=== PATIENT | female | born 1960 | race African-American/Black ===

== ENCOUNTER 2017-09-23 19:35 | Emergency (ER) | payer MEDICAID ==
[~2017-09-23] VITALS: Ht 162.6 cm; Wt 115.7 kg
[~2017-09-23 19:35] MED LIST: BENADRYL25 M3 PO; DICYCLOMINE HCL10 MG PO; LASIX20 M1 ORAL; LISINOPRIL10 MG ORAL; OMEPRAZOLE40 M1 ORAL; POTASSIUM99 M3 PO; PRAVASTATIN SOD20 M1 ORAL
[2017-09-23] MEDS ORDERED: IBUPROFEN600 MG ORAL (20:11)
[2017-09-23] MEDS ORDERED: ROBAXIN-750750 MG PO (20:11)
[2017-09-23] MEDS ORDERED: NORCO 5-325 TA1 EACH ORAL (20:11)
[2017-09-23] MEDS ORDERED: Norco 5mg/325mg tab ORAL ONE (20:15)
[2017-09-23] MEDS ORDERED: Ketorolac 60mg Inj IM ONE (20:15)
[2017-09-23 20:20] LABS: APPEARANCE,URINE SLIGHTLY CLOUDY; BILIRUBIN, URINE NEGATIVE (NEGATIVE); COLOR,URINE PALE YELLOW; GLUCOSE, URINE (UA) NEGATIVE (NEGATIVE); KETONES,URINE 1+ (NEGATIVE); LEUKOCYTE ESTERASE ,URINE 1+ (NEGATIVE); NITRITE,URINE NEGATIVE (NEGATIVE); PH,URINE 6 (4.5-8.0); PROTEIN,URINE NEGATIVE (NEGATIVE); UROBILINOGEN,URINE NORMAL MG/DL (0.0-1.0)
[2017-09-23 20:30] VITALS: BP 168/102
--- NOTE | 2017-09-24 07:34 | Emergency Room Report ---
History of Present Illness General Chief Complaint: Lower Back Pain or Injury Source: Patient Present Illness HPI Patient presents with complaints of low back pain Points to the right posterior superior iliac crest region for the pain She reports the pain started after she woke up this morning Has some mild radiation toward the buttock area in the anterior thigh Denies any focal weakness denies any trauma Denies any abdominal pain denies any vomiting or diarrhea Pain is 5/10 sharp as noted above Allergies: Coded Allergies: No Known Allergies (Unverified , 02/03/16) Patient History Past Medical History: see triage record Pertinent Family History: none Last Menstrual Period: NA Now: No Reviewed Nursing Documentation: PMH: Agreed, PSxH: Agreed Nursing Documentation-PMH Hx Hypertension: Yes Hx Asthma: Yes Hx Cancer: No Hx Neurological Problems: No Review of Systems All Other Systems: negative except mentioned in HPI Physical Exam Vital Signs Date Time Temp Pulse Resp B/P (MAP) Pulse Ox O2 Delivery O2 Flow Rate FiO2 09/23/17 19:45 97.7 74 18 168/102 97 Room Air Sp02 EP Interpretation: reviewed, normal General Appearance: well appearing, no apparent distress Head: normocephalic, atraumatic Eyes: bilateral eye PERRL, bilateral eye EOMI ENT: hearing grossly normal, normal pharynx, TMs + canals normal, uvula midline Neck: full range of motion, supple, no meningismus, no bony tend Respiratory: lungs clear, normal breath sounds, no rhonchi, no respiratory distress, no retraction, no accessory muscle use Cardiovascular #1: normal peripheral pulses, regular rate, rhythm, no edema, no gallop, no JVD, no murmur Gastrointestinal: normal bowel sounds, non tender, soft, no mass, no organomegaly, non-distended, no guarding, no hernia, no pulsatile mass, no rebound Genitourinary: no CVA tenderness Musculoskeletal: other - Fairly specific discomfort palpated over the right posterior superior iliac crest region, otherwise range of motion intact no sensory deficits Neurologic: oriented x3, responsive, power lineman III-XII nml as tested, motor strength/ tone normal, sensory intact Psychiatric: mood/affect normal Skin: normal color, no rash, warm/dry, palpation normal Lymphatic: normal inspection, no adenopathy Medical Decision Making Diagnostic Impression: Primary Impression: sciatica ER Course Patient appears to have findings in line with sciatic discomfort other differentials such as neurological neurosurgical, infectious pathology considered Patient's exam however is in line with the above mentioned diagnosis and she will have initial conservative trial, Labs Test 09/23/17 20:07 Urine Color Pale yellow Urine Appearance Slightly cloudy Urine pH 6 (4.5-8.0) Urine Specific [place] 1.020 (1.005-1.035) Urine Protein Negative (NEGATIVE) Urine Glucose (UA) Negative (NEGATIVE) Urine Ketones 1+ (NEGATIVE) Urine Occult Blood 1+ (NEGATIVE) Urine Nitrite Negative (NEGATIVE) Urine Bilirubin Negative (NEGATIVE) Urine Urobilinogen Normal MG/DL (0.0-1.0) Urine Leukocyte Esterase 1+ (NEGATIVE) Urine RBC 5-10 /HPF (0 - 2) Urine WBC 0-2 /HPF (0 - 2) Urine Squamous Epithelial Cells Moderate /LPF (NONE/OCC) Urine Bacteria Few /HPF (NONE) Last Vital Signs Date Time Temp Pulse Resp B/P (MAP) Pulse Ox O2 Delivery O2 Flow Rate FiO2 09/23/17 20:30 97.7 18 168/102 97 Room Air 09/23/17 19:45 74 Status: improved Disposition: HOME, SELF-CARE Condition: Improved Scripts Methocarbamol* (ROBAXIN-750*) 750 Mg Tablet 750 MG PO TID, #21 TAB 0 Refills Prov: IBETH NOEL D.O. 09/23/17 Hydrocodone Bit/Acetaminophen 5-325* (NORCO 5-325*) 1 Each Tablet 1 TAB ORAL Q6H Y for For Pain, #10 TAB 0 Refills Prov: IBETH NOEL D.O. 09/23/17 Ibuprofen* (MOTRIN*) 600 Mg Tablet 600 MG ORAL Q8H Y for For Pain, #20 TAB 0 Refills Prov: IBETH NOEL D.O. 09/23/17 Referrals: FRANDY OLSEN,REFERRING (PCP) Patient Instructions: Back Pain, Adult, Sciatica, [id number] Additional Instructions: Patient is provided with the discharge instructions notified to follow up with primary doctor in the next 2-3 days otherwise return to the er with any worsening symptoms. Please note that this report is being documented using [employer] technology. This can lead to erroneous entry secondary to incorrect interpretation by the dictating instrument. IBETH NOEL D.O. Sep 24, 2017 07:34
== END 2017-09-23 20:30 | disposition home or self-care (01) ==
LOC: EMR 20:15
DX: M54.30 Sciatica, unspecified side (principal); J45.909 Unspecified asthma, uncomplicated; I10 Essential (primary) hypertension
CPT/HCPCS: 81003; 96372; 99283

== ENCOUNTER 2019-02-15 19:47 | Emergency (ER) | payer MEDICAID ==
[~2019-02-15] VITALS: Ht 162.6 cm; Wt 122.5 kg
[~2019-02-15 19:47] MED LIST changes: +IBUPROFEN600 MG ORAL; +NORCO 5-325 TA1 EACH ORAL; +ROBAXIN-750750 MG PO
[2019-02-15] MEDS ORDERED: QVAR7.3 GM INH (19:54)
[2019-02-15] MEDS ORDERED: AMLODIPINE BESYL5 MG ORAL (19:54)
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
[2019-02-15 19:58] VITALS: BP 127/88
[2019-02-15] MEDS ORDERED: Tylenol #3 tab (300mg/30mg) ORAL ONE (20:15)
--- NOTE | 2019-02-15 20:18 | NUR ---
ED Nurse Note: PT STATES THAT THOMAS MAKES HER STOMACH HURT, INFORMED ERPA-C. PER ERPA-C SHE WILL CHANGE THE ORDER. TYLENOL/CODEINE RETURNED TO [facility].
--- NOTE | 2019-02-15 20:29 | NUR ---
ED Nurse Note: PT LEFT FOR CT
[2019-02-15] MEDS ORDERED: Acetaminophen 500mg (ES) tab ORAL ONE (20:30)
--- NOTE | 2019-02-15 20:39 | NUR ---
ED Nurse Note: PT RETURNED FROM CT
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
[2019-02-15] MEDS ORDERED: VOLTAREN100 G1 TP (21:01)
[2019-02-15] MEDS ORDERED: TYLENOL EXTRA500 MG ORAL (21:01)
--- NOTE | 2019-02-15 21:05 | NUR ---
ER DISCHARGE NOTE: Patient is cleared to be discharged per ERMD, pt is aox4, on room air, with stable vital signs. pt was given dc and prescription instructions, pt was able to verbalize understanding, pt id band removed. pt is able to ambulate with steady gait. pt took all belongings. grandyohanaght arrived to picking supervisor pt.
[2019-02-15 21:06] VITALS: BP 130/87
--- NOTE | 2019-02-16 11:21 | Diagnostic Imaging Report ---
Clinical Indication: Reason For Exam: PAIN Technique: Spiral acquisitions obtained through the chest. No IV contrast utilized, per referring physician request. Multiplanar reconstructions generated. Total dose length product 981.19 mGycm. CTDIvol(s) 27.31 mGy. Dose reduction achieved using automated exposure control Comparison: none Findings: There is evidence of prior right shoulder rotator cuff repair. No acute fractures. Vertebral body heights are preserved. The disc spaces are preserved. No definite significant soft tissue contusion demonstrated. No evidence of pneumothorax. There are posterior dependent atelectatic changes at both lung bases. Lungs and pleural spaces are otherwise clear. The heart size is normal. No evidence of retrosternal hematoma. No pericardial effusion. No evidence of recent or hilar mass or adenopathy. The esophagus is unremarkable. The included upper abdominal viscera are remarkable for colonic diverticulosis. Impression: No acute thoracic pathology or evidence of significant traumatic injury Incidental finding of colonic diverticulosis. This essentially agrees with the [facility] preliminary report The CT scanner at [facility] is accredited by the [employer] and the scans are performed using protocols designed to limit radiation exposure to as low as reasonably achievable to attain images of sufficient resolution adequate for diagnostic evaluation.
== END 2019-02-15 21:05 | disposition home or self-care (01) ==
LOC: EMR 20:30
DX: S20.212A Contusion of left front wall of thorax, initial encounter (principal); S39.012A Strain of muscle, fascia and tendon of lower back, initial encounter; V43.62XA Car passenger injured in collision with other type car in traffic accident, initial encounter; Y92.410 Unspecified street and highway as the place of occurrence of the external cause; I10 Essential (primary) hypertension
CPT/HCPCS: 71250; 99284

== ENCOUNTER 2020-04-04 15:03 | Emergency (ER) | payer MEDICAID ==
[~2020-04-04] VITALS: Ht 162.6 cm; Wt 113.4 kg
[~2020-04-04 15:03] MED LIST changes: +AMLODIPINE BESYL5 MG ORAL; +QVAR7.3 GM INH; +TYLENOL EXTRA500 MG ORAL; +VOLTAREN100 G1 TP
--- NOTE | 2020-04-04 15:23 | NUR ---
ED Nurse Note: Pt ambulated to ED home and walked in due to small sore on her right side scalp x 4 days. Pt states her scalp is itching. Pt is currently taking sulfamethoxazol-e tmp from an urgent care x 4 days but states it's not working for her. Pt's A&Ox4, calm and cooperative. VSS, on RA.
[2020-04-04 15:30] VITALS: BP 107/74
--- NOTE | 2020-04-04 15:41 | Emergency Room Report ---
History of Present Illness General Chief Complaint: Skin Rash/Abscess Source: Patient Present Illness HPI 59-year-old female with no symptom past medical history here complaining of several extremely pruritic and semi-painful rash in the right temporal and posterior parietal lobe. Reports that started after she got her hair done by herself and guided. Reports that she went to urgent care a few days ago and was given Bactrim DS however is not helping. Reports that she now feels little pain and tenderness as she has been scratching a lot. Denies any pus drainage. Denies any other lesions. Denies having any new animal, contact with new allergens. Denies fever and chills, chest pain, shortness of breath, cough and congestion. Allergies: Coded Allergies: LISINOPRIL (Verified Allergy, Unknown, 04/04/20) lip swelling COVID-19 Screening Contact w/high risk pt: No Experienced COVID-19 symptoms?: No COVID-19 Testing performed FOOD AND BEVERAGE MANAGER: No Patient History Past Medical History: see triage record Past Surgical History: none Pertinent Family History: none Now: No Reviewed Nursing Documentation: PMH: Agreed; PSxH: Agreed Nursing Documentation-PMH Past Medical History: No History, Except For Hx Hypertension: Yes Hx Asthma: Yes Hx Cancer: No Hx Neurological Problems: No Review of Systems All Other Systems: negative except mentioned in HPI Physical Exam Vital Signs Date Time Temp Pulse Resp B/P (MAP) Pulse Ox O2 Delivery O2 Flow Rate FiO2 04/04/20 15:11 98.2 84 15 107/74 (85) 100 Room Air Sp02 EP Interpretation: reviewed, normal General Appearance: no apparent distress, alert, GCS 15, non-toxic Head: normocephalic, atraumatic Eyes: bilateral eye normal inspection, bilateral eye PERRL ENT: hearing grossly normal, normal pharynx, no angioedema, normal voice Neck: full range of motion, supple, no meningismus, supple/symm/no masses Respiratory: chest non-tender, lungs clear, normal breath sounds, no rhonchi, no retraction, no wheezing, speaking full sentences Cardiovascular #1: regular rate, rhythm, no edema Cardiovascular #2: 2+ carotid (R), 2+ carotid (L) Gastrointestinal: normal bowel sounds, non tender, soft, non-distended, no guarding, no rebound Genitourinary: no CVA tenderness Musculoskeletal: back normal Neurologic: alert, motor strength/tone normal, oriented x3, sensory intact, responsive, speech normal Psychiatric: judgement/insight normal, memory normal, mood/affect normal, no suicidal/homicidal ideation Skin: rash - Tinea capitis noted right temporal and parietal lobes with minimal scabbing however nontender to palpation Lymphatic: no adenopathy Medical Decision Making PA Attestation All my diagnosis and treatment plans were reviewed ad discussed with my supervising physician Dr. Salas Diagnostic Impression: Primary Impression: Tinea capitis ER Course 59-year-old female with no symptom past medical history here complaining of several extremely pruritic and semi-painful rash in the right temporal and posterior parietal lobe. Reports that started after she got her hair done by herself and guided. Reports that she went to urgent care a few days ago and was given Bactrim DS however is not helping. Reports that she now feels little pain and tenderness as she has been scratching a lot. Denies any pus drainage. Denies any other lesions. Denies having any new animal, contact with new allergens. Denies fever and chills, chest pain, shortness of breath, cough and congestion. Ddx considered but are not limited to: Eczema, scabies, lice, Vital signs: are WNL, pt. is afebrile H&PE are most consistent with: Tinea capitis ORDERS: Ketoconazole shampoo, clotrimazole cream ED INTERVENTIONS: None required at this time. DISCHARGE: At this time pt. is stable for d/c to home. Will provide printed patient care instructions, and any necessary prescriptions. Care plan and follow up instructions have been discussed with the patient prior to discharge. Advised patient to continue taking follow primary doctor for referral to mortgage loan officer if not proved. Oral medication may be needed. Avoid coming contact with allergens. If worsening symptoms return to the emergency room Last Vital Signs Date Time Temp Pulse Resp B/P (MAP) Pulse Ox O2 Delivery O2 Flow Rate FiO2 04/04/20 15:11 98.2 84 15 107/74 (85) 100 Room Air Disposition: HOME, SELF-CARE Condition: Stable Scripts Ketoconazole (KETOCONAZOLE) 120 Ml Shampoo 10 ML TP 2XW for 28 Days, #120 ML Prov: Sommer Aguiar 8/3/20 Clotrimazole* (LOTRIMIN*) 15 Gm Cream..g. 1 APPLIC TOPIC TWICE A DAY, #15 GM Prov: Sommer Aguiar 04/04/20 Referrals: [facility],REFERR[facility] (PCP) Patient Instructions: Scalp Ringworm, [id number] Additional Instructions: Take medication as directed, follow primary care provider, worsening symptoms return to the emergency room. Sommer Aguiar Apr 04, 2020 15:41
[2020-04-04] MEDS ORDERED: KETOCONAZOLE120 ML TP (15:45)
[2020-04-04] MEDS ORDERED: CLOTRIMAZOLE15 GM TOPIC (15:45)
[2020-04-04 15:54] VITALS: BP 110/76
--- NOTE | 2020-04-04 15:54 | NUR ---
ER DISCHARGE NOTE: Patient is cleared to be discharged per ERPA, pt is aox4, on room air, with stable vital signs. pt was given dc and prescription instructions, pt was able to verbalize understanding, pt id band removed. pt is able to ambulate with steady gait. pt took all belongings.
== END 2020-04-04 15:54 | disposition home or self-care (01) ==
LOC: EMR 15:16
DX: B35.0 Tinea barbae and tinea capitis (principal); I10 Essential (primary) hypertension; Z88.8 Allergy status to other drugs, medicaments and biological substances
CPT/HCPCS: 99282